=== PATIENT | female | born 1965 | race American Indian/Alaskan Native ===

== ENCOUNTER 2018-08-15 14:52 | Emergency (ER) | payer MEDICAID, MEDICARE, OTHER ==
[2018-08-15 14:52] VITALS: BMI 39.5
--- NOTE | 2018-08-15 15:45 | C.PDOC ---
History Of Present Illness Patient is a 53 year old Female with PMHx of DMII, seizures, HTN, neuropathy, and thyroid cancer who presents today for 2 weeks of abdominal pain radiating into her back and flank. Patient says she was [place] 2 [place] ago [place] [facility] [place] had a chest xray done because she was also having chest and rib pain. Patient was sent home and told to take Ibuprofen and Motrin. Since then patient says her abdominal pain has only worsened. Patient describes the pain as sharp stabbing pain that is epigastric and right sided and radiates to the right flank. Patient rates the pain 10/10. Patient also admits to swelling in her abdomen and LE swelling. Patient denies any dysuria or hematuria. Patient admits to about 30lbs of weight gain since her thyroidectomy in April. Patient did not take any of her home medications today due to the pain. Patient went to her PMD today and he called an ambulance to bring her to the ER. <Court Marcano - Last Filed: 08/15/18 16:58> History Per: Patient History/Exam Limitations: no limitations Onset/Duration Of Symptoms: Days Current Symptoms Are (Timing): Worse Severity: Severe Pain Scale Rating Of: 10 Location Of Pain/Discomfort: RUQ, Epigastric Radiation Of Pain To:: Flank Quality Of Discomfort: Sharp, Stabbing Associated Symptoms: denies: Fever, Chills, Nausea, Vomiting, Diarrhea, Constipation Exacerbating Factors: Movement, Deep Breaths Alleviating Factors: None Last Bowel Movement: Yesterday Additional History Per: Patient Abnormal Vaginal Bleeding: No <Court Marcano - Last Filed: 08/15/18 16:58> <Alyssia Mchugh - Last Filed: 08/15/18 18:21> Time Seen by Provider: 08/15/18 15:01 Chief Complaint (Nursing): Abdominal Pain Past Medical History Vital Signs: Last Vital Signs Temp 97.8 F 08/15/18 15:01 Pulse 72 08/15/18 15:01 Resp 20 08/15/18 15:01 BP 194/99 H 08/15/18 15:01 Pulse Ox 99 08/15/18 15:01 - Medical History PMH: Asthma, Diabetes, HTN, Hyperthyroidism, Seizures Surgical History: Cholecystectomy Other Surgeries: thyroidectomy 2018 Family History: States: Unknown Family Hx - Social History Hx Tobacco Use: No Hx Alcohol Use: No Hx Substance Use: No - Immunization History Hx Tetanus Toxoid Vaccination: No Hx Influenza Vaccination: No Hx Pneumococcal Vaccination: No <Court Marcano - Last Filed: 08/15/18 16:58> Vital Signs: Last Vital Signs Temp 97.8 F 08/15/18 15:01 Pulse 68 08/15/18 17:01 Resp 21 08/15/18 17:01 BP 194/122 H 08/15/18 17:02 Pulse Ox 100 08/15/18 17:01 <Alyssia Mchugh - Last Filed: 08/15/18 18:21> Review Of Systems Constitutional: Negative for: Fever, Chills Cardiovascular: Negative for: Chest Pain, Palpitations Respiratory: Negative for: Cough, Shortness of Breath Gastrointestinal: Positive for: Abdominal Pain. Negative for: Nausea, Vomiting, Diarrhea, Constipation Genitourinary: Negative for: Dysuria, Frequency, Hematuria Musculoskeletal: Positive for: Back Pain (right sided back and flank pain) <Court Marcano - Last Filed: 08/15/18 16:58> Physical Exam - Physical Exam Appears: Non-toxic, In Acute Distress Skin: Normal Color, Warm, Dry Head: Atraumatic, Normacephalic Eye(s): bilateral: Normal Inspection Chest: Symmetrical Cardiovascular: Rhythm Regular Respiratory: Normal Breath Sounds, No Accessory Muscle Use, No Rales, No Rhonchi, No Stridor, No Wheezing Gastrointestinal/Abdominal: Bowel Sounds, No Soft, Tenderness, Distention, Guarding, Other (distended) Back: CVA Tenderness (right sided CVA tenderness) Extremity: Pedal Edema (1+ pitting edema bilaterally) Neurological/Psych: Oriented x3 <Court Marcano - Last Filed: 08/15/18 16:58> ED Course And Treatment - Laboratory Results Result Diagrams: 08/15/18 16:20 O2 Sat by Pulse Oximetry: 99 <Court Marcano - Last Filed: 08/15/18 16:58> - Laboratory Results Result Diagrams: 08/15/18 16:20 08/15/18 16:20 O2 Sat by Pulse Oximetry: 100 (RA) Pulse Ox Interpretation: Normal Progress Note: Blood work, UA, Upreg, CT abd/pelvis ordered and reviewed. Patient given IV morphine, IV labetolol for HTN. <Alyssia Mchugh - Last Filed: 08/15/18 18:21> Disposition <Court Marcano - Last Filed: 08/15/18 16:58> - Disposition Disposition Time: 18:20 <Alyssia Mchugh - Last Filed: 08/15/18 18:21> - Disposition Condition: STABLE Forms: [employer] (Salvadorean) - Clinical Impression Clinical Impression: Abdominal pain Physician Patient Turnover Patient Signed Over To: Richelle Jennings Handoff Comments: Pending CT, reassessment. <Alyssia Mchugh - Last Filed: 08/15/18 18:21>
[2018-08-15] MEDS ORDERED: Morphine 4 MG/ML VIAL IVP STA (16:09)
[2018-08-15 16:26] LABS: BASO # 0.1 K/uL (0.0-0.2); BASO % 0.9 % (0.0-2.0); EOS # 0.2 K/uL (0.0-0.7); EOS % 2.2 % (0.0-4.0); HEMOGLOBIN 13.2 g/dL (11.0-16.0); LYMPH # 3.1 K/uL (1.0-4.3); LYMPH % 27.7 % (20.0-40.0); MEAN CELL VOLUME 87.1 fL (81.0-99.0); MEAN CORPUSCULAR HEMOGLOBIN 28.8 pg (27.0-31.0); MEAN CORPUSCULAR HGB CONC 33.1 g/dL (33.0-37.0); MEAN PLATELET VOLUME 8.7 fL (7.2-11.7); MONO # 0.7 K/uL (0.0-0.8); MONO % 6.6 % (0.0-10.0); NEUT % 62.6 % (50.0-75.0); RBC 4.58 Mil/uL (3.80-5.20); RED CELL DISTRIBUTION WIDTH 14.9 % (11.5-14.5); WHITE BLOOD COUNT 11.2 K/uL (4.8-10.8)
[2018-08-15 16:30] LABS: SQUAMOUS EPITHIAL 2 /hpf (0-5); URINE BILIRUBIN NEGATIVE (NEGATIVE); URINE BLOOD 1+ (NEGATIVE); URINE CLARITY Clear (Clear); URINE COLOR Straw (YELLOW); URINE GLUCOSE (UA) NORMAL (Normal); URINE LEUKOCYTE ESTERASE NEG Leu/uL (Negative); URINE PROTEIN 2+ mg/dL (NEGATIVE); URINE UROBILINOGEN NORMAL mg/dL (0.2-1.0)
[2018-08-15] MEDS ORDERED: Morphine 4 MG/ML VIAL IM STA (16:38)
[2018-08-15] MEDS ORDERED: Morphine 4 MG/ML VIAL ONE (16:44)
[2018-08-15 17:00] LABS: ALB/GLOB RATIO 1.2 (1.0-2.1); ALBUMIN 3.9 g/dL (3.5-5.0)
[2018-08-15] MEDS ORDERED: Sodium Chloride 0.9% 500 ML IV ONE ×2 (17:02→17:11)
[2018-08-15] MEDS ORDERED: Iodixanol 320 MG/ML 100 ML BOTTLE IV ONE (17:08)
[2018-08-15] MEDS ORDERED: Labetalol 25mg/5ml Syringe IV STA (17:33)
[2018-08-15] MEDS ORDERED: Labetalol 5mg/ml (4ml) ONE (17:38)
[2018-08-15 19:09] LABS: VENOUS BLOOD GAS BASE EXCESS 4.5 mmol/L (0.0-2.0); VENOUS BLOOD GAS PCO2 49 mmHg (40-60); VENOUS BLOOD GAS PO2 34 mm/Hg (30-55)
[2018-08-15 19:22] VITALS: TEMP 98; O2SAT 97
[2018-08-15] MEDS ORDERED: Pantoprazole 40 mg EC Tab PO STA (22:16)
[2018-08-15 22:49] VITALS: BP 142/88; PULSE 86; RESP 16
--- NOTE | 2018-08-16 08:37 | CT ---
Date of service: 08/15/2018 PROCEDURE: CT Abdomen and Pelvis with intravenous contrast HISTORY: severe abdominal pain, abdominal distention COMPARISON: None. TECHNIQUE: Multiple contiguous axial images were performed through the abdomen and pelvis with the use of intravenous contrast. Subsequently, sagittal and coronal reformatted images were obtained. Radiation dose: Total exam DLP = 1228.66 mGy-cm. This CT exam was performed using one or more of the following dose reduction techniques: Automated exposure control, adjustment of the mA and/or kV according to patient size, and/or use of iterative reconstruction technique. FINDINGS: LOWER THORAX: Scattered atelectasis and consolidative changes at the lung bases. 7 millimeter nodular density seen within the medial aspect of the left upper lobe on series 3, image 1. LIVER: Mild intrahepatic biliary ductal dilatation. GALLBLADDER AND BILE DUCTS: Prior cholecystectomy. PANCREAS: Unremarkable. No gross lesion or ductal dilatation. SPLEEN: Unremarkable. ADRENALS: Unremarkable. No mass. KIDNEYS AND URETERS: Unremarkable. No hydronephrosis. No solid mass. Punctate subcentimeter hypodensity seen within the mid to lower pole of the right kidney, too small to adequately characterize. VASCULATURE: Unremarkable. No aortic aneurysm. Aortic atherosclerotic calcification or mural plaque present. BOWEL: Unremarkable. No obstruction. No gross mural thickening. Small hiatal hernia. Moderate fecal retention in the colon. APPENDIX: Unremarkable. Normal appendix. PERITONEUM: Unremarkable. No free fluid. No free air. LYMPH NODES: Unremarkable. No enlarged lymph nodes. BLADDER: Unremarkable. REPRODUCTIVE: Heterogeneous multi fibroid uterus. Correlation with pelvic ultrasound may be helpful if clinically indicated. Prominence of the bilateral adnexa with some trace free fluid adjacent to the bilateral adnexa. Again correlation with pelvic ultrasound may be helpful if clinically indicated. BONES: Degenerative changes in the spine and shoulders. Mild retrolisthesis of L5 on S1. OTHER FINDINGS: Reticulation and edema within the circumferential subcutaneous soft tissues suggestive for anasarca. IMPRESSION: Bulky heterogeneous multi fibroid uterus. Prominence of bilateral adnexa. Trace free fluid within the bilateral adnexa and pelvic cul-de-sac. Correlation with pelvic ultrasound may be helpful if clinically indicated. Moderate fecal retention in the colon. Small hiatal hernia. Additional findings as above. A preliminary report was generated at 9:09 p.m. on 08/15/[address] Hakeem Arango from [employer].
== END 2018-08-15 22:47 | disposition home or self-care (01) ==
LOC: C.ER 14:52
DX: R10.9 Unspecified abdominal pain (principal); I10 Essential (primary) hypertension; E11.9 Type 2 diabetes mellitus without complications; J45.909 Unspecified asthma, uncomplicated; E05.90 Thyrotoxicosis, unspecified without thyrotoxic crisis or storm; Z90.49 Acquired absence of other specified parts of digestive tract
CPT/HCPCS: 74177; 80053; 81001; 82803; 82948; 85025; 96372; 99285; J2270; J7040; Q9967